=== PATIENT | male | born 1985 | race Hispanic/Latino ===

== ENCOUNTER 2022-10-25 17:56 | Inpatient (IN) | payer OTHER, MEDICAID ==
[~2022-10-25] VITALS: Ht 172.7 cm; Wt 111.1 kg
[2022-10-25 19:35] LABS: BASOPHILS % (AUTO) 0.8 % (0.0-5.0); EOSINOPHILS % (AUTO) 1.5 % (0.0-8.0); HEMATOCRIT 39.5 % (42-54); LYMPHOCYTES % (AUTO) 24.2 % (21.0-51.0); MEAN CORPUSCULAR HEMOGLOBIN 26.9 pg (27.0-33.0); MEAN CORPUSCULAR HGB CONC 32.4 g/dL (32.0-36.0); MEAN CORPUSCULAR VOLUME 83.2 fL (79-99); MONOCYTES % (AUTO) 7.2 % (3.0-13.0); NEUTROPHILS % (AUTO) 65.7 % (40.0-77.0); PLATELET COUNT (AUTO) 302 K/uL (130-400); RED BLOOD CELL COUNT(AUTO) 4.75 MIL/uL (4.50-6.20); RED CELL DISTRIBUTION WIDTH 14.6 % (11.0-15.5); WHITE BLOOD COUNT (AUTO) 12.5 K/uL (4.8-10.8)
[2022-10-25 19:38] LABS: APPEARANCE,URINE CLEAR (CLEAR); BILIRUBIN,URINE NEGATIVE (NEGATIVE); COLOR,URINE COLORLESS (YELLOW); GLUCOSE, URINE (UA) NEGATIVE (NEGATIVE); KETONES,URINE NEGATIVE (NEGATIVE); LEUKOCYTE ESTERASE ,URINE NEGATIVE Leu/uL (NEGATIVE); NITRATE,URINE NEGATIVE (NEGATIVE); OCCULT BLOOD,URINE NEGATIVE (NEGATIVE); PROTEIN,URINE NEGATIVE (NEGATIVE); UROBILINOGEN,URINE 0.2 mg/dL (0.2-1.0)
[2022-10-25 19:40] LABS: MUCUS,URINE RARE LPF (None Seen); RBC,URINE 0-1 /HPF (0-1); WBC,URINE 0-1 /HPF (0-1)
[2022-10-25 19:59] LABS: POTASSIUM 4.2 mmol/L (3.5-5.1)
[2022-10-25 20:04] LABS: ALBUMIN 3.9 g/dL (3.5-5.0)
[2022-10-25] MEDS ORDERED: PANTOPRAZOLE 40 MG/VIAL IVP ONE (21:30)
[2022-10-25] MEDS ORDERED: FENTANYL CITRATE PF 50 MCG/1 ML 2ML VIAL IVP ONE (21:30)
[2022-10-25] MEDS ORDERED: LACTULOSE 20 GM/30 ML UDCUP PO PRN (22:30)
[2022-10-25] MEDS: LACTATED RINGERS 1000ML 1,000 ML IV SCH (22:30)
[2022-10-25] MEDS ORDERED: ONDANSETRON 4MG INJ IV PRN (22:30)
[2022-10-25] MEDS ORDERED: ACETAMINOPHEN 325 MG TAB PO PRN ×2 (22:30)
[2022-10-25] MEDS ORDERED: IOHEXOL 350 MG/ML 100ML INFUS..BTL IV ONE (22:33)
[2022-10-26 03:15] VITALS: BP 118/78
[2022-10-26] MEDS: MORPHINE 4 MG SYG IV PRN ×2 (04:23→11:51)
[2022-10-26] MEDS ORDERED: TIZA-194 PO (05:26)
[2022-10-26] MEDS ORDERED: ALPR2TAB7 PO (05:26)
[2022-10-26] MEDS ORDERED: AEC81 PO (05:26)
[2022-10-26] MEDS ORDERED: FLUO10CA24 PO (05:26)
[2022-10-26] MEDS ORDERED: TRAM50TA4 PO (05:26)
[2022-10-26] MEDS ORDERED: CHOL200012 PO (05:26)
[2022-10-26] MEDS ORDERED: GABA300S PO (05:26)
[2022-10-26] MEDS ORDERED: EZET10TA48 PO (05:26)
[2022-10-26] MEDS ORDERED: TRAZ-185 PO (05:26)
[2022-10-26] MEDS ORDERED: MULT-503 PO (05:26)
[2022-10-26] MEDS ORDERED: FERR325T29 PO (05:26)
[2022-10-26] MEDS ORDERED: DICL75TA5 PO (05:26)
[2022-10-26] MEDS ORDERED: LISI1TAB53 PO (05:26)
[2022-10-26] MEDS ORDERED: CILO50TA2 PO (05:26)
[2022-10-26] MEDS ORDERED: LEVE10006 PO (05:26)
[2022-10-26] MEDS ORDERED: FISH1CAP63 PO (05:26)
[2022-10-26] MEDS ORDERED: PANT40TA54 PO (05:26)
[2022-10-26] MEDS ORDERED: ATOR40TA69 PO (05:26)
[2022-10-26 05:38] LABS: BASOPHILS % (AUTO) 0.7 % (0.0-5.0); EOSINOPHILS % (AUTO) 1.6 % (0.0-8.0); HEMATOCRIT 35.2 % (42-54); LYMPHOCYTES % (AUTO) 32.3 % (21.0-51.0); MEAN CORPUSCULAR HEMOGLOBIN 26.7 pg (27.0-33.0); MEAN CORPUSCULAR HGB CONC 32.7 g/dL (32.0-36.0); MEAN CORPUSCULAR VOLUME 81.9 fL (79-99); NEUTROPHILS % (AUTO) 57.1 % (40.0-77.0); PLATELET COUNT (AUTO) 249 K/uL (130-400); RED CELL DISTRIBUTION WIDTH 14.8 % (11.0-15.5); WHITE BLOOD COUNT (AUTO) 9.2 K/uL (4.8-10.8)
[2022-10-26 05:53] LABS: CREATININE 1.2 mg/dL (0.5-1.5); POTASSIUM 3.9 mmol/L (3.5-5.1)
[2022-10-26 08:00] VITALS: BP 118/64
[2022-10-26] MEDS: LACTATED RINGERS 1000ML 1,000 ML IV SCH (08:30)
[2022-10-26] MEDS ORDERED: PANTOPRAZOLE 40 MG/VIAL IVP SCH (09:00)
[2022-10-26 12:00] VITALS: BP 110/74
[2022-10-26] MEDS ORDERED: COMPOUND IV MISC 1 EACH IVSOLN MISC PRN (13:00)
[2022-10-26 13:23] LABS: % IRON SATURATION 15.3 % (30-44)
[2022-10-26] MEDS ORDERED: LEVETIRACETAM 1,000 MG in 0.9%NACL 100ML IV SCH (21:00)
== END 2022-10-26 15:15 | disposition left against medical advice (07) | DRG 378 ==
LOC: EDH 17:56 → EDHIP 17:57 → UNDOADMIN 22:04 → EDHIP 22:04 → 3AH 10-26 03:38
PROVIDERS: ADMIT Hospitalist; ATTEND Hospitalist
DX: K92.2 Gastrointestinal hemorrhage, unspecified (principal); E87.1 Hypo-osmolality and hyponatremia; K76.0 Fatty (change of) liver, not elsewhere classified; E66.9 Obesity, unspecified; F32.A Depression, unspecified; I10 Essential (primary) hypertension; F41.9 Anxiety disorder, unspecified; E78.00 Pure hypercholesterolemia, unspecified; D64.9 Anemia, unspecified; F17.200 Nicotine dependence, unspecified, uncomplicated; I25.10 Atherosclerotic heart disease of native coronary artery without angina pectoris; R10.30 Lower abdominal pain, unspecified; M51.26 Other intervertebral disc displacement, lumbar region; Z87.11 Personal history of peptic ulcer disease; Z68.37 Body mass index [BMI] 37.0-37.9, adult
CPT/HCPCS: 36415; 74177; 80048; 80053; 81001; 82270; 83540; 83550; 85025; 85730; 86850; 86900; 86901; 96361; 96374; 96375; C9113; G0378; J1953; J2270; J3010; J7120; Q9967

== ENCOUNTER 2022-12-07 11:52 | Emergency (ER) | payer OTHER, MEDICAID ==
[~2022-12-07] VITALS: Ht 172.7 cm; Wt 110.2 kg
[~2022-12-07 11:52] MED LIST: AEC81 PO; ALPR2TAB7 PO; ATOR40TA69 PO; CHOL200012 PO; CILO50TA2 PO; DICL75TA5 PO; EZET10TA48 PO; FERR325T29 PO; FISH1CAP63 PO; FLUO10CA24 PO; GABA300S PO; LEVE10006 PO; LISI1TAB53 PO; MULT-503 PO; PANT40TA54 PO; TIZA-194 PO; TRAM50TA4 PO; TRAZ-185 PO
[2022-12-07 13:39] LABS: APPEARANCE,URINE CLEAR (CLEAR); BILIRUBIN,URINE NEGATIVE (NEGATIVE); COLOR,URINE LIGHT-YELLOW (YELLOW); GLUCOSE, URINE (UA) NEGATIVE (NEGATIVE); KETONES,URINE NEGATIVE (NEGATIVE); LEUKOCYTE ESTERASE ,URINE NEGATIVE Leu/uL (NEGATIVE); NITRATE,URINE NEGATIVE (NEGATIVE); OCCULT BLOOD,URINE NEGATIVE (NEGATIVE); PH,URINE 5.5 (5.0-8.0); PROTEIN,URINE NEGATIVE (NEGATIVE); UROBILINOGEN,URINE 0.2 mg/dL (0.2-1.0)
[2022-12-07 14:06] LABS: BASOPHILS % (AUTO) 0.7 % (0.0-5.0); EOSINOPHILS % (AUTO) 2.4 % (0.0-8.0); HEMATOCRIT 34.7 % (42-54); LYMPHOCYTES % (AUTO) 34.6 % (21.0-51.0); MEAN CORPUSCULAR HEMOGLOBIN 26.8 pg (27.0-33.0); MEAN CORPUSCULAR VOLUME 83.8 fL (79-99); MONOCYTES % (AUTO) 7.3 % (3.0-13.0); NEUTROPHILS % (AUTO) 54.4 % (40.0-77.0); PLATELET COUNT (AUTO) 256 K/uL (130-400); RED BLOOD CELL COUNT(AUTO) 4.14 MIL/uL (4.50-6.20); RED CELL DISTRIBUTION WIDTH 14.6 % (11.0-15.5); WHITE BLOOD COUNT (AUTO) 7.2 K/uL (4.8-10.8)
[2022-12-07 14:16] LABS: POTASSIUM 4.1 mmol/L (3.5-5.1)
[2022-12-07 14:20] LABS: ALBUMIN 3.6 g/dL (3.5-5.0); TOTAL PROTEIN, SERUM 6.7 g/dL (6.0-8.3)
[2022-12-07] MEDS ORDERED: ONDANSETRON 4MG INJ IVP ONE (14:30)
[2022-12-07] MEDS ORDERED: 0.9%NACL 1000ML 1,000 ML IV ONE (14:30)
[2022-12-07] MEDS ORDERED: FAMOTIDINE 20MG VIAL IV ONE (14:30)
[2022-12-07] MEDS ORDERED: MORPHINE 4 MG SYG IVP ONE (14:30)
[2022-12-07 14:37] VITALS: BP 132/69
[2022-12-07] MEDS ORDERED: IOHEXOL 350 MG/ML 100ML INFUS..BTL IV ONE (15:08)
== END 2022-12-07 16:14 | disposition home or self-care (01) ==
LOC: EDH 11:52
DX: G89.29 Other chronic pain (principal); M54.50 Low back pain, unspecified; K62.5 Hemorrhage of anus and rectum; I10 Essential (primary) hypertension; E78.5 Hyperlipidemia, unspecified; E78.00 Pure hypercholesterolemia, unspecified; Z79.899 Other long term (current) drug therapy
CPT/HCPCS: 99285; 72131; 96374; 96375; 96361; 82270; 80053; 85025; 86850; 86900; 86901; 81003; 36415; 74177; J3490; J7030; J2405; J2270; Q9967

== ENCOUNTER 2022-12-26 13:11 | Emergency (ER) | payer OTHER, MEDICAID ==
[~2022-12-26] VITALS: Ht 172.7 cm; Wt 113.4 kg
[2022-12-26 13:12] VITALS: BP 127/79
[2022-12-26] MEDS ORDERED: KETOROLAC 15MG/ML VIAL (15MG/ML) IM ONE (14:00)
== END 2022-12-26 16:03 | disposition home or self-care (01) ==
LOC: EDH 13:11
DX: G89.29 Other chronic pain (principal); M54.50 Low back pain, unspecified; E78.00 Pure hypercholesterolemia, unspecified; I10 Essential (primary) hypertension; Z79.899 Other long term (current) drug therapy
CPT/HCPCS: 99281

== ENCOUNTER 2023-02-10 04:38 | Emergency (ER) | payer MEDICAID, OTHER ==
[~2023-02-10] VITALS: Ht 172.7 cm; Wt 108.9 kg
[~2023-02-10 04:38] MED LIST changes: -GABA300S PO; +GABA300S3 PO
[2023-02-10 05:23] LABS: BASOPHILS % (AUTO) 0.5 % (0.0-5.0); EOSINOPHILS % (AUTO) 0.7 % (0.0-8.0); HEMATOCRIT 36.4 % (42-54); LYMPHOCYTES % (AUTO) 9.9 % (21.0-51.0); MEAN CORPUSCULAR HEMOGLOBIN 28.7 pg (27.0-33.0); MEAN CORPUSCULAR HGB CONC 33.8 g/dL (32.0-36.0); MONOCYTES % (AUTO) 5.3 % (3.0-13.0); NEUTROPHILS % (AUTO) 83.2 % (40.0-77.0); PLATELET COUNT (AUTO) 414 K/uL (130-400); RED BLOOD CELL COUNT(AUTO) 4.28 MIL/uL (4.50-6.20); RED CELL DISTRIBUTION WIDTH 13.2 % (11.0-15.5); WHITE BLOOD COUNT (AUTO) 13.7 K/uL (4.8-10.8)
[2023-02-10] MEDS ORDERED: KETOROLAC 30MG VIAL (30MG/ML) ONE (05:30)
[2023-02-10 05:34] LABS: POTASSIUM 3.8 mmol/L (3.5-5.1)
[2023-02-10 05:38] LABS: ALBUMIN 3.6 g/dL (3.5-5.0); TOTAL PROTEIN, SERUM 7.7 g/dL (6.0-8.3)
[2023-02-10] MEDS ORDERED: 0.9%NACL 1000ML 1,000 ML IV ONE (06:00)
[2023-02-10] MEDS ORDERED: KETOROLAC 30MG VIAL (30MG/ML) IVP ONE (06:00)
[2023-02-10] MEDS ORDERED: CEFEPIME HCL 2 GM VIAL IVPB SCH (06:30)
[2023-02-10] MEDS ORDERED: ONDANSETRON 4MG INJ IVP ONE (06:30)
[2023-02-10] MEDS ORDERED: VANCOMYCIN 1G VIAL IVPB ONE (06:30)
[2023-02-10] MEDS ORDERED: DiphenhydrAMINE HCL 50 MG/ML VIAL IV ONE (06:30)
[2023-02-10] MEDS ORDERED: MORPHINE 4 MG SYG IVP ONE (06:30)
[2023-02-10] MEDS ORDERED: PROCHLORPERAZINE 10MG/2ML INJ IV ONE (06:30)
[2023-02-10] MEDS ORDERED: VANCOMYCIN 1G/250ML KIT 250 ML IV ONE (06:39)
[2023-02-10 07:19] LABS: APPEARANCE,URINE CLEAR (CLEAR); BILIRUBIN,URINE NEGATIVE (NEGATIVE); COLOR,URINE COLORLESS (YELLOW); GLUCOSE, URINE (UA) NEGATIVE (NEGATIVE); KETONES,URINE NEGATIVE (NEGATIVE); LEUKOCYTE ESTERASE ,URINE NEGATIVE Leu/uL (NEGATIVE); NITRATE,URINE NEGATIVE (NEGATIVE); OCCULT BLOOD,URINE NEGATIVE (NEGATIVE); PH,URINE 6.5 (5.0-8.0); PROTEIN,URINE NEGATIVE (NEGATIVE); UROBILINOGEN,URINE 0.2 mg/dL (0.2-1.0)
[2023-02-10 08:53] VITALS: BP 116/70
== END 2023-02-10 09:48 | disposition short-term general hospital (02) ==
LOC: EDH 04:38
DX: R50.82 Postprocedural fever (principal); E78.00 Pure hypercholesterolemia, unspecified; I10 Essential (primary) hypertension; Z79.82 Long term (current) use of aspirin; Z79.899 Other long term (current) drug therapy; Z86.73 Personal history of transient ischemic attack (TIA), and cerebral infarction without residual deficits; Z20.822 Contact with and (suspected) exposure to COVID-19
CPT/HCPCS: 99284; 96375; 96374; 87635; 96361; 80053; 85025; 87040 ×2; 83605 ×2; 81003; 36415; C9803; J1200; J7030; J0780; J2405; J2270; J1885; J3370; J0692

== ENCOUNTER 2023-05-02 15:48 | Emergency (ER) | payer MEDICAID ==
[~2023-05-02] VITALS: Ht 172.7 cm; Wt 113.4 kg
[2023-05-02 17:09] LABS: APPEARANCE,URINE CLEAR (CLEAR); BILIRUBIN,URINE NEGATIVE (NEGATIVE); COLOR,URINE LIGHT-YELLOW (YELLOW); GLUCOSE, URINE (UA) >=1000 mg/dL (NEGATIVE); KETONES,URINE NEGATIVE (NEGATIVE); LEUKOCYTE ESTERASE ,URINE NEGATIVE Leu/uL (NEGATIVE); NITRATE,URINE NEGATIVE (NEGATIVE); OCCULT BLOOD,URINE NEGATIVE (NEGATIVE); PH,URINE 5.5 (5.0-8.0); PROTEIN,URINE NEGATIVE (NEGATIVE); UROBILINOGEN,URINE 0.2 mg/dL (0.2-1.0)
[2023-05-02 17:30] LABS: RBC,URINE 0-1 /HPF (0-1); SQUAMOUS EPITHELIAL CELL,UR RARE /HPF (0-2); WBC,URINE 0-1 /HPF (0-1)
[2023-05-02 17:32] LABS: BASOPHILS % (AUTO) 0.9 % (0.0-5.0); EOSINOPHILS % (AUTO) 4.7 % (0.0-8.0); HEMATOCRIT 41.3 % (42-54); MEAN CORPUSCULAR HEMOGLOBIN 28.6 pg (27.0-33.0); MEAN CORPUSCULAR HGB CONC 35.6 g/dL (32.0-36.0); MEAN CORPUSCULAR VOLUME 80.4 fL (79-99); MONOCYTES % (AUTO) 5.7 % (3.0-13.0); NEUTROPHILS % (AUTO) 57.3 % (40.0-77.0); PLATELET COUNT (AUTO) 247 K/uL (130-400); RED BLOOD CELL COUNT(AUTO) 5.14 MIL/uL (4.50-6.20); WHITE BLOOD COUNT (AUTO) 7.9 K/uL (4.8-10.8)
[2023-05-02 17:50] LABS: ALBUMIN 3.6 g/dL (3.5-5.0); CREATININE 1.3 mg/dL (0.5-1.5); POTASSIUM 4.3 mmol/L (3.5-5.1); TOTAL PROTEIN, SERUM 7.8 g/dL (6.0-8.3)
[2023-05-02] MEDS ORDERED: ONDANSETRON 4MG INJ IVP ONE (18:00)
[2023-05-02] MEDS ORDERED: 0.9%NACL 1000ML 1,000 ML IV ONE (18:00)
[2023-05-02 18:48] VITALS: BP 143/90; PULSE 89; RESP 20; O2SAT 95
[2023-05-02] MEDS ORDERED: METF-444 PO (22:21)
== END 2023-05-02 22:44 | disposition home or self-care (01) ==
LOC: EDH 15:48
DX: E11.65 Type 2 diabetes mellitus with hyperglycemia (principal); E78.00 Pure hypercholesterolemia, unspecified; I10 Essential (primary) hypertension; Z79.02 Long term (current) use of antithrombotics/antiplatelets; Z79.82 Long term (current) use of aspirin; Z79.84 Long term (current) use of oral hypoglycemic drugs; Z79.899 Other long term (current) drug therapy; Z86.73 Personal history of transient ischemic attack (TIA), and cerebral infarction without residual deficits
CPT/HCPCS: 99285; 96374; 70450; 96361; 84484; 80053; 85025; 82948 ×3; 82010; 81001; 36415; 93005; J7030; J2405

== ENCOUNTER 2023-09-09 09:53 | Emergency (ER) | payer OTHER, MEDICAID ==
[~2023-09-09] VITALS: Ht 172.7 cm; Wt 113.4 kg
[~2023-09-09 09:53] MED LIST changes: +CHOL2000 PO; +CYCL-309 PO; +ESOM20CA60 PO; +GABA600T10 PO; +INSU100V37 SQ; +IPRAHFA IH; +METF-444 PO; +METO50TA18 PO; +ROSU40TA21 PO; +SITA1TAB2 PO
[2023-09-09 10:29] LABS: BASOPHILS # (AUTO) 0.06 K/uL (0.00-0.20); BASOPHILS % (AUTO) 0.9 % (0.0-5.0); EOSINOPHILS # (AUTO) 0.16 K/uL (0.00-0.70); EOSINOPHILS % (AUTO) 2.3 % (0.0-8.0); HEMATOCRIT 42.5 % (42-54); IMMATURE GRANULOCYTE ABSOLUTE 0.04 K/uL (0-1); LYMPHOCYTES # (AUTO) 2.2 K/uL (1.0-4.8); LYMPHOCYTES % (AUTO) 31.5 % (21.0-51.0); MEAN CORPUSCULAR HEMOGLOBIN 30.2 pg (27.0-33.0); MEAN CORPUSCULAR HGB CONC 33.6 g/dL (32.0-36.0); MEAN CORPUSCULAR VOLUME 89.9 fL (79-99); MONOCYTES # (AUTO) 0.6 K/uL (0.1-1.0); MONOCYTES % (AUTO) 8.3 % (3.0-13.0); NEUTROPHILS % (AUTO) 56.4 % (40.0-77.0); PLATELET COUNT (AUTO) 202 K/uL (130-400); RED BLOOD CELL COUNT(AUTO) 4.73 MIL/uL (4.50-6.20); RED CELL DISTRIBUTION WIDTH 12.2 % (11.0-15.5)
[2023-09-09 10:38] LABS: CREATININE 0.8 mg/dL (0.5-1.5); POTASSIUM 3.8 mmol/L (3.5-5.1)
[2023-09-09 10:41] LABS: ALBUMIN 3.2 g/dL (3.5-5.0); BILIRUBIN,TOTAL 0.4 mg/dL (0.2-1.0); TOTAL PROTEIN, SERUM 6.7 g/dL (6.0-8.3)
[2023-09-09 12:30] LABS: APPEARANCE,URINE CLEAR (CLEAR); BILIRUBIN,URINE NEGATIVE (NEGATIVE); COLOR,URINE LIGHT-YELLOW (YELLOW); GLUCOSE, URINE (UA) NEGATIVE (NEGATIVE); KETONES,URINE NEGATIVE (NEGATIVE); LEUKOCYTE ESTERASE ,URINE NEGATIVE Leu/uL (NEGATIVE); NITRATE,URINE NEGATIVE (NEGATIVE); OCCULT BLOOD,URINE NEGATIVE (NEGATIVE); PROTEIN,URINE NEGATIVE (NEGATIVE); UROBILINOGEN,URINE 0.2 mg/dL (0.2-1.0)
[2023-09-09] MEDS ORDERED: MORPHINE 4 MG SYG IVP ONE (12:30)
[2023-09-09] MEDS ORDERED: ONDANSETRON 4MG INJ IVP ONE (12:30)
[2023-09-09 12:32] LABS: ADD UA MICROSCOPIC YES
[2023-09-09 12:33] LABS: MUCUS,URINE RARE LPF (None Seen); RBC,URINE 0-1 /HPF (0-1); WBC,URINE 0-1 /HPF (0-1)
[2023-09-09 14:29] VITALS: BP 147/84; PULSE 72; RESP 18; O2SAT 98
[2023-09-09] MEDS ORDERED: IOHEXOL 350 MG/ML 100ML INFUS..BTL IV ONE (14:38)
[2023-09-09] MEDS ORDERED: FAMO20TA8 PO (15:13)
[2023-09-09] MEDS ORDERED: ACETAMINOPHEN 500 MG TABLET PO ONE (15:30)
== END 2023-09-09 15:32 | disposition home or self-care (01) ==
LOC: EDH 09:53
DX: K76.0 Fatty (change of) liver, not elsewhere classified (principal); K63.5 Polyp of colon; F41.9 Anxiety disorder, unspecified; E11.9 Type 2 diabetes mellitus without complications; E78.00 Pure hypercholesterolemia, unspecified; F32.A Depression, unspecified; I10 Essential (primary) hypertension; Z79.02 Long term (current) use of antithrombotics/antiplatelets; Z79.82 Long term (current) use of aspirin; Z79.84 Long term (current) use of oral hypoglycemic drugs; Z79.899 Other long term (current) drug therapy; Z86.73 Personal history of transient ischemic attack (TIA), and cerebral infarction without residual deficits
CPT/HCPCS: 99285; 74177; 96374; 96375; 82270; 84484; 80053; 83690; 85025; 81001; 36415; 93005; J2405; J2270; Q9967

== ENCOUNTER 2024-06-21 00:38 | Emergency (ER) | payer MEDICAID ==
[~2024-06-21] VITALS: Ht 172.7 cm; Wt 108.9 kg
[~2024-06-21 00:38] MED LIST changes: -ATOR40TA69 PO; -CHOL200012 PO; -DICL75TA5 PO; -FLUO10CA24 PO; +GABA-1405 PO; -GABA300S3 PO; -GABA600T10 PO; +INSU100I47 SQ; -INSU100V37 SQ; +INSU200I8 SQ; -LEVE10006 PO; +LIDO1ADH71 TP; -LISI1TAB53 PO; +LOSA50TA64 PO; -METF-444 PO; +METF-446 PO; +METO50 PO; -METO50TA18 PO; -PANT40TA54 PO; -ROSU40TA21 PO; +ROSU40TA88 PO; +SITA100T12 PO; -SITA1TAB2 PO; -TIZA-194 PO; -TRAM50TA4 PO; -TRAZ-185 PO
[2024-06-21 02:05] LABS: BASOPHILS # (AUTO) 0.06 K/uL (0.00-0.20); BASOPHILS % (AUTO) 0.6 % (0.0-5.0); EOSINOPHILS # (AUTO) 0.08 K/uL (0.00-0.70); EOSINOPHILS % (AUTO) 0.8 % (0.0-8.0); HEMATOCRIT 40.5 % (42-54); IMMATURE GRANULOCYTE ABSOLUTE 0.03 K/uL (0-1); LYMPHOCYTES # (AUTO) 3.9 K/uL (1.0-4.8); MEAN CORPUSCULAR HEMOGLOBIN 29.7 pg (27.0-33.0); MEAN CORPUSCULAR HGB CONC 35.3 g/dL (32.0-36.0); MEAN CORPUSCULAR VOLUME 84.2 fL (79-99); MONOCYTES # (AUTO) 0.8 K/uL (0.1-1.0); MONOCYTES % (AUTO) 7.6 % (3.0-13.0); NEUTROPHILS # (AUTO) 5.4 K/uL (1.8-7.7); NEUTROPHILS % (AUTO) 52.7 % (40.0-77.0); PLATELET COUNT (AUTO) 234 K/uL (130-400); RED BLOOD CELL COUNT(AUTO) 4.81 MIL/uL (4.50-6.20); RED CELL DISTRIBUTION WIDTH 12.7 % (11.0-15.5); WHITE BLOOD COUNT (AUTO) 10.2 K/uL (4.8-10.8)
[2024-06-21 02:14] LABS: CREATININE 0.9 mg/dL (0.5-1.3); POTASSIUM 4.1 mmol/L (3.5-5.1)
[2024-06-21 02:18] LABS: ALBUMIN 3.8 g/dL (3.5-5.0); BILIRUBIN,TOTAL 0.6 mg/dL (0.2-1.0); TOTAL PROTEIN, SERUM 7.6 g/dL (6.0-8.3)
[2024-06-21] MEDS: ondanSETRON 4MG INJ IVP ONE (02:29)
[2024-06-21] MEDS: morPHINE 4 MG SYG IVP ONE (02:29)
[2024-06-21] MEDS: LACTATED RINGERS 1000ML 1,000 ML IV ONE (02:30)
[2024-06-21 02:40] VITALS: TEMP 98.9
[2024-06-21] MEDS ORDERED: IOHEXOL 350 MG/ML 100ML INFUS..BTL IV ONE (04:40)
[2024-06-21 06:06] LABS: ADD UA MICROSCOPIC YES; APPEARANCE,URINE CLEAR (CLEAR); BILIRUBIN,URINE NEGATIVE (NEGATIVE); COLOR,URINE LIGHT-YELLOW (YELLOW); GLUCOSE, URINE (UA) NEGATIVE (NEGATIVE); KETONES,URINE NEGATIVE (NEGATIVE); LEUKOCYTE ESTERASE ,URINE NEGATIVE Leu/uL (NEGATIVE); NITRATE,URINE NEGATIVE (NEGATIVE); OCCULT BLOOD,URINE NEGATIVE (NEGATIVE); PH,URINE 6.5 (5.0-8.0); PROTEIN,URINE 10 mg/dL (NEGATIVE); UROBILINOGEN,URINE 0.2 mg/dL (0.2-1.0)
[2024-06-21 06:08] LABS: MUCUS,URINE RARE LPF (None Seen); RBC,URINE 0-1 /HPF (0-1); SQUAMOUS EPITHELIAL CELL,UR RARE /HPF (0-2); WBC,URINE 0-1 /HPF (0-1)
[2024-06-21 06:10] LABS: AMPHET/METH SCREEN,URINE NEGATIVE (NEGATIVE); BARBITURATE SCREEN, URINE NEGATIVE (NEGATIVE); BENZODIAZEPINES SCREEN,URINE POSITIVE (NEGATIVE); CANNABINOID SCREEN,URINE NEGATIVE (NEGATIVE); COCAINE SCREEN,URINE POSITIVE (NEGATIVE); OPIATE SCREEN,URINE POSITIVE (NEGATIVE); PHENCYCLIDINE SCREEN,URINE NEGATIVE (NEGATIVE)
[2024-06-21 06:19] VITALS: BP 104/52; PULSE 68; RESP 18; O2SAT 99
== END 2024-06-21 06:51 | disposition home or self-care (01) ==
LOC: EDH 00:38
DX: R10.11 Right upper quadrant pain (principal); R53.1 Weakness; R53.83 Other fatigue; I10 Essential (primary) hypertension; E78.00 Pure hypercholesterolemia, unspecified; E11.51 Type 2 diabetes mellitus with diabetic peripheral angiopathy without gangrene; F32.A Depression, unspecified; F41.9 Anxiety disorder, unspecified; Z86.73 Personal history of transient ischemic attack (TIA), and cerebral infarction without residual deficits; Z79.85 Long-term (current) use of injectable non-insulin antidiabetic drugs; Z79.82 Long term (current) use of aspirin; Z79.899 Other long term (current) drug therapy; Z79.84 Long term (current) use of oral hypoglycemic drugs
CPT/HCPCS: 99285; 74177; 96374; 96361; 96375; 82150; 80053; 80305; 83690; 85025; 36415; 81001; J7120; J2405; J2270; Q9967

== ENCOUNTER 2024-10-07 00:55 | Emergency (ER) | payer MEDICAID ==
[~2024-10-07] VITALS: Ht 172.7 cm; Wt 104.3 kg
[2024-10-07 02:41] LABS: BASOPHILS # (AUTO) 0.07 K/uL (0.00-0.20); BASOPHILS % (AUTO) 0.6 % (0.0-5.0); EOSINOPHILS # (AUTO) 0.13 K/uL (0.00-0.70); EOSINOPHILS % (AUTO) 1.1 % (0.0-8.0); HEMATOCRIT 40.3 % (42-54); IMMATURE GRANULOCYTE ABSOLUTE 0.03 K/uL (0-1); LYMPHOCYTES # (AUTO) 3.8 K/uL (1.0-4.8); LYMPHOCYTES % (AUTO) 31.9 % (21.0-51.0); MEAN CORPUSCULAR HEMOGLOBIN 30.3 pg (27.0-33.0); MEAN CORPUSCULAR VOLUME 86.7 fL (79-99); MONOCYTES # (AUTO) 0.8 K/uL (0.1-1.0); MONOCYTES % (AUTO) 6.8 % (3.0-13.0); NEUTROPHILS % (AUTO) 59.3 % (40.0-77.0); PLATELET COUNT (AUTO) 286 K/uL (130-400); RED BLOOD CELL COUNT(AUTO) 4.65 MIL/uL (4.50-6.20); RED CELL DISTRIBUTION WIDTH 12.5 % (11.0-15.5); WHITE BLOOD COUNT (AUTO) 11.8 K/uL (4.8-10.8)
[2024-10-07 02:48] LABS: CREATININE 0.8 mg/dL (0.5-1.3); POTASSIUM 3.8 mmol/L (3.5-5.1)
[2024-10-07 03:05] LABS: B-TYPE NATRIURETIC PEPTIDE 10 pg/mL (0-100)
--- NOTE | 2024-10-07 03:20 | NUR ---
UA CUP PROVIDED
--- NOTE | 2024-10-07 03:25 | NUR ---
REPORT TO HAZEL GAMEZ
[2024-10-07] MEDS: LACTATED RINGERS 1000ML 1,368 ML IV ONE (04:29)
[2024-10-07 04:36] LABS: APPEARANCE,URINE CLEAR (CLEAR); BILIRUBIN,URINE NEGATIVE (NEGATIVE); COLOR,URINE YELLOW (YELLOW); GLUCOSE, URINE (UA) NEGATIVE (NEGATIVE); KETONES,URINE NEGATIVE (NEGATIVE); LEUKOCYTE ESTERASE ,URINE NEGATIVE Leu/uL (NEGATIVE); NITRATE,URINE NEGATIVE (NEGATIVE); OCCULT BLOOD,URINE NEGATIVE (NEGATIVE); PH,URINE 5.5 (5.0-8.0); PROTEIN,URINE NEGATIVE (NEGATIVE); UROBILINOGEN,URINE 0.2 mg/dL (0.2-1.0)
[2024-10-07 04:43] LABS: ADD UA MICROSCOPIC NO; AMPHET/METH SCREEN,URINE NEGATIVE (NEGATIVE); BARBITURATE SCREEN, URINE NEGATIVE (NEGATIVE); BENZODIAZEPINES SCREEN,URINE NEGATIVE (NEGATIVE); CANNABINOID SCREEN,URINE NEGATIVE (NEGATIVE); COCAINE SCREEN,URINE NEGATIVE (NEGATIVE); OPIATE SCREEN,URINE NEGATIVE (NEGATIVE); PHENCYCLIDINE SCREEN,URINE NEGATIVE (NEGATIVE)
[2024-10-07] MEDS: morPHINE 4 MG SYG IVP ONE (05:17)
--- NOTE | 2024-10-07 06:30 | ERN ---
General Chief Complaint: Multiple Complaints Stated Complaint: LOW BLOOD SUGAR, CHEST PAIN Time Seen by MD: 03:31 History of Present Illness Initial Comments Mr Altamirano is a 39-year-old male who comes in today with a chief complaint of low blood sugar and muscle pain. Patient reports he has been taking Ozempic for weight loss. Patient reports he has had no appetite has had very little to eat. Patient states that his sugar has been in the 40s and 50s. Patient reports he recently cut his insulin half to accommodate for the Ozempic affect. Patient reports widespread muscle aches and pain Allergies: Coded Allergies: No Known Allergies (Unverified Allergy, Unknown, 10/25/22) Home Meds Reported Medications Lidocaine (Lidocaine Pain Relief) 4 % Adh..patch, 1 EACH TP DAILY PRN for BACK PAIN, ADH.PATCH 12/24/23 Insulin Degludec (Insulin Degludec Pen (U-200)) 200 Unit/Ml (3 Ml) Insuln.pen, 50 UNIT SQ HS, SYRINGE 12/24/23 Insulin Aspart (Insulin Aspart Flexpen) 100 Unit/Ml (3 Ml) Insuln.pen, 50 UNITS SQ NOON PRN for HIGH BLOOD SUGAR 12/24/23 Losartan Potassium (Losartan Potassium) 50 Mg Tablet, 50 MG PO AM, TAB 12/24/23 Sitagliptin Phosphate (Januvia) 100 Mg Tablet, 1 TAB PO DAILY 12/24/23 Metoprolol Tartrate (Lopressor 50Mg Tab) 50 Mg Tab, 1 TAB PO BID 12/24/23 Metformin HCl (Metformin HCl) 1,000 Mg Tablet, 1 TAB PO BID 12/24/23 Cholecalciferol (Vitamin D3) (Vitamin D3) 50 Mcg Capsule, 50 MCG PO AM, CAP 05/22/23 Rosuvastatin Calcium (Rosuvastatin Calcium) 40 Mg Tablet, 40 MG PO HS, TAB 05/22/23 Cyclobenzaprine HCl (Cyclobenzaprine HCl) 10 Mg Tablet, 10 MG PO TIDP PRN for PAIN LEVEL 1 TO 5, TAB 05/22/23 Gabapentin (Gabapentin) 600 Mg Tablet, 600 MG PO TID, TAB 05/22/23 Esomeprazole Magnesium (Nexium 24Hr) 20 Mg Capsule.dr, 20 MG PO DAILY, CAP 05/22/23 Ipratropium Crary (Atrovent Hfa) 12.9 Gm Hfa.aer.ad, 17 MCG IH Q4HPRN 05/22/23 Ezetimibe (Ezetimibe) 10 Mg Tablet, 10 MG PO DAILY, TAB 10/26/22 Ferrous Sulfate (Ferosul) 325 Mg Tablet, 325 MG PO DAILY, TAB 10/26/22 Alprazolam (Alprazolam) 2 Mg Tablet, 2 MG PO BID, TAB 10/26/22 Cilostazol (Cilostazol) 50 Mg Tablet, 50 MG PO DAILY, TAB 10/26/22 Aspirin (ASPIRIN 81 MG ECTAB) 81 Mg Ectab, 81 MG PO BID, TAB.EC 10/26/22 Multivitamin with Minerals (One Daily Complete) 1 Each Tablet, 1 EACH PO DAILY, TAB 10/26/22 Fish Oil/Dha/Epa (Fish Oil 1,200 mg Fish Oil) 1 Each Capsule, 1 EACH PO BID, CAP 10/26/22 Past Medical History Past Medical History: Anxiety, CVA, Depression, Diabetes-Type II, High Cholesterol, Heart Disease, Hypertension, Liver Disease, [place], Seizure, Stroke, Other Medical History Other: PAD, DRUG INDUCED [place] Past Surgical History: Other Surgical History Other: RIGHT SHOULDER AND WRIST, BACK , TEETH , STENT TO RLEFT LEG Social History Social History: Negative ROS Dictation Constitutional: Negative for fever,chills, and weight loss Eyes: Negative for injury, pain,redness, and discharge ENT: Negative for injury,pain or swelling Cardiovascular: Negative for chest pain, palpitations, and edema Respiratory: Negative for shortness of breath, cough, and wheezing, Abdomen/GI: Negative for abdominal pain, nausea, vomiting, diarrhea, and constipation Back: Negative for injury and pain : Negative for injury, bleeding and discharge MS/Extremity: Positive for muscle aches Skin: Negative for rash, and discoloration Neuro: Negative for headache, weakness, numbness, tingling, and seizure Psych: Negative for suicide ideation, homicidal ideation, and hallucinations Physical Exam Physical Exam Dictation General: awake, alert, NAD Head/Face: Normocephalic, atraumatic Eyes: PERRL, EOMI, vision at baseline ENT: oral cavity clear, Neck: Trachea midline, supple, Cardiovascular: RRR, normal S1/S2, No MRGs, no JVD Respiratory: CTAB, no respiratory distress, No rales or wheezes Abdomen: Soft, non-tender, non-distended, normal bowel sounds Skin: Warm, dry, normal turgor, no rash MS/Extremity: Pulses equal, no cyanosis, neurovascular intact, FROM Neuro: COAx4, GCS 15 Psych: Normal behavior, mood, and affect normal Results Laboratory and Microbiology Lab and Micro Result Laboratory Tests Test 10/07/24 02:30 10/07/24 04:19 10/07/24 05:46 White Blood Count 11.8 K/uL (4.8-10.8) H Red Blood Count 4.65 MIL/uL (4.50-6.20) Hemoglobin 14.1 g/dL (14.0-18.0) Hematocrit 40.3 % (42-54) L Mean Corpuscular Volume 86.7 fL (79-99) Mean Corpuscular Hemoglobin 30.3 pg (27.0-33.0) Mean Corpuscular Hemoglobin Concent 35.0 g/dL (32.0-36.0) Red Cell Distribution Width 12.5 % (11.0-15.5) Platelet Count 286 K/uL (130-400) Mean Platelet Volume 8.4 fL (7.5-10.5) Immature Granulocyte % (Auto) 0.3 % (0-1) Neutrophils (%) (Auto) 59.3 % (40.0-77.0) Lymphocytes (%) (Auto) 31.9 % (21.0-51.0) Monocytes (%) (Auto) 6.8 % (3.0-13.0) Eosinophils (%) (Auto) 1.1 % (0.0-8.0) Basophils (%) (Auto) 0.6 % (0.0-5.0) Neutrophils # (Auto) 7.0 K/uL (1.8-7.7) Lymphocytes # (Auto) 3.8 K/uL (1.0-4.8) Monocytes # (Auto) 0.8 K/uL (0.1-1.0) Eosinophils # (Auto) 0.13 K/uL (0.00-0.70) Basophils # (Auto) 0.07 K/uL (0.00-0.20) Absolute Immature Granulocyte (auto 0.03 K/uL (0-1) Nucleated Red Blood Cells 0.0 % (0.0-0.19) Sodium Level 140 mmol/L (136-145) Potassium Level 3.8 mmol/L (3.5-5.1) Chloride Level 104 mmol/L (101-111) Carbon Dioxide Level 29 mmol/L (21-32) Blood Urea Nitrogen 10 mg/dL (7-18) Creatinine 0.8 mg/dL (0.5-1.3) Glomerular Filtration Rate Calc 115 mL/min (>90) Random Glucose 150 mg/dL (70-105) H Total Calcium 8.9 mg/dL (8.5-10.1) Total Creatine Kinase 628 U/L (21-232) *H 484 U/L (21-232) #*H Troponin I < 0.05 ng/mL (0.00-0.05) Troponin I High Sensitivity 4 ng/L (4-75) B-Type Natriuretic Peptide 10 pg/mL (0-100) Urine Color YELLOW (YELLOW) Urine Appearance CLEAR (CLEAR) Urine pH 5.5 (5.0-8.0) Urine Specific [place] 1.029 (1.001-1.031) Urine Protein NEGATIVE mg/dL (NEGATIVE) Urine Glucose (UA) NEGATIVE mg/dL (NEGATIVE) Urine Ketones NEGATIVE mg/dL (NEGATIVE) Urine Occult Blood NEGATIVE (NEGATIVE) Urine Nitrate NEGATIVE (NEGATIVE) Urine Bilirubin NEGATIVE mg/dL (NEGATIVE) Urine Urobilinogen 0.2 mg/dL (0.2-1.0) Urine Leukocyte Esterase NEGATIVE Kuldeep/uL Urine Opiates Screen NEGATIVE (NEGATIVE) Urine Barbiturates Screen NEGATIVE (NEGATIVE) Urine Phencyclidine Screen NEGATIVE (NEGATIVE) Urine Amphetamines Screen NEGATIVE (NEGATIVE) Urine Benzodiazepines Screen NEGATIVE (NEGATIVE) Urine Cocaine Screen NEGATIVE (NEGATIVE) Urine Marijuana (THC) Screen NEGATIVE (NEGATIVE) MDM Patient has a elevated CK in that has responded to fluid resuscitation. Patient appears to have side effects of Ozempic. Advised patient to stop Ozempic until he is seen by his primary care physician. MDM: Differential diagnosis: Medication side-effect Rationale: Tests considered and ordered secondary to shared decision making include: Previous outside records reviewed: Old ER visits. Risk of complication and/or morbidity or mortality of patient management: None Medications-Per medication reconciliation Need for hospitalization: Patient does not meet criteria for hospitalization. Need for emergency major/minor surgery: No There are no social concerns with this patient. Prescription drug management Prescriptions will include symptomatic care Patient's prior external medical records from other ER visits were reviewed by me as indicated. Prior testing and results from previous visits were reviewed. Prior tests were taken into account with medical decision making and resource utilization, independent historian/historians were used to obtain complete medical history. I independently interpreted the test that were performed, results were reviewed by me and considered findings on radiology if ordered. Medical management and examination interpretation discussions were had by me with other qualified healthcare professionals as indicated for the patient's care. ED Course Orders Procedure Category Date Status Time Vital Signs Per CPOE 10/07/24 Transmitted Routine 01:00 B-Type Natriuretic LAB 10/07/24 Complete Peptide 01:00 Chest 1vw RAD 10/07/24 Taken 01:00 12 Lead Ekg Tracing- EKG 10/07/24 Logged Technical 01:00 Oxygen By Nc/Pulse Ox CPOE 10/07/24 Transmitted 01:00 Maintain Iv CPOE 10/07/24 Transmitted 01:00 Iv Insertion CPOE 10/07/24 Transmitted 01:00 Cardiac Monitoring CPOE 10/07/24 Transmitted 01:00 Pulse Oximetry With CPOE 10/07/24 Transmitted Vs And Prn 01:00 Cbc With Differential LAB 10/07/24 Complete 01:00 Activity: Br W/Brp CPOE 10/07/24 Transmitted With Assist 01:00 Creatine Kinase, Total LAB 10/07/24 Complete 01:00 Urinalysis Profile LAB 10/07/24 Complete 01:00 Troponin Poc Order LAB 10/07/24 Complete Only 01:00 Bedside Troponin-I LAB.ER 10/07/24 In Process (Poc) 01:00 Basic Metabolic Panel LAB 10/07/24 Complete 01:00 Troponin I High LAB 10/07/24 Complete Sensitivity 01:00 Bedside Glucose CPOE 10/07/24 Transmitted Fingerstick 01:00 Drug Screen Urine LAB 10/07/24 Complete 01:06 Lactated Ringers PHA 10/07/24 In Process 1000ml (Lactated 04:00 Morphine 4mg Syg PHA 10/07/24 Complete (Morphine 4mg Syg) 05:30 Creatine Kinase, Total LAB 10/07/24 Complete 05:34 Current Medications Medications (Trade) Dose Ordered Sig/Citlali Route PRN Reason Start Time Stop Time Status Last Admin Dose Admin Lactated Ringer's 1,368 ml @ 456 mls/hr ONCE ONCE IV 10/07/24 04:00 10/07/24 06:59 10/07/24 04:29 Morphine Sulfate (morPHINE 4MG SYG) 4 mg ONCE ONCE IVP 10/07/24 05:30 10/07/24 05:31 DC 10/07/24 05:17 Vital Signs Date Time Temp Pulse Resp B/P (MAP) Pulse Ox O2 Delivery O2 Flow Rate FiO2 10/07/24 04:21 98.2 70 18 124/78 97 Room Air* 0 21 10/07/24 00:56 98.1 83 16 143/102 97 Room Air DX & DISP Disposition: Discharge Departure Impression: Primary Impression: Elevated CK Condition: Stable Additional Instructions: Please stop Ozempic until you see your primary care physician. Please drink plenty of fluids in the form of 1-2 L a day. Please check his sugar 4 times a day. Please take sliding scale insulin as needed Referrals: SELF,REFERRAL (PCP) ROBINSON FREDERICK MD Oct 07, 2024 06:30
[2024-10-07] MEDS: morPHINE 2 MG SYG IVP ONE (07:13)
[2024-10-07 07:39] VITALS: BP 136/72; PULSE 70; RESP 18; TEMP 98.2; O2SAT 97
--- NOTE | 2024-10-07 08:33 | EKG ---
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
--- NOTE | 2024-10-07 09:27 | HMCIMG ---
Exam Type: CHEST 1VW Clinical Information: CHEST PAIN Comparison: None Findings: The lungs are clear of infiltrates. The heart is normal in size. The bony and soft tissue structures of the chest are unremarkable. Impression: Clear lungs.
== END 2024-10-07 07:42 | disposition home or self-care (01) ==
LOC: EDH 00:55
DX: R74.8 Abnormal levels of other serum enzymes (principal); E11.649 Type 2 diabetes mellitus with hypoglycemia without coma; E78.00 Pure hypercholesterolemia, unspecified; F32.A Depression, unspecified; F41.9 Anxiety disorder, unspecified; I10 Essential (primary) hypertension; Z79.02 Long term (current) use of antithrombotics/antiplatelets; Z79.82 Long term (current) use of aspirin; Z79.84 Long term (current) use of oral hypoglycemic drugs; Z79.85 Long-term (current) use of injectable non-insulin antidiabetic drugs; Z79.899 Other long term (current) drug therapy; Z86.73 Personal history of transient ischemic attack (TIA), and cerebral infarction without residual deficits
CPT/HCPCS: 99285; 96374; 96361; 71045; 82550 ×2; 84484 ×3; 80048; 83880; 80305; 85025; 82948; 36415; 96376; 93005; 81003; J7120; J2270 ×2

== ENCOUNTER 2025-05-08 13:07 | Emergency (ER) | payer MEDICAID ==
[~2025-05-08] VITALS: Ht 172.7 cm; Wt 106.1 kg
--- NOTE | 2025-05-08 13:41 | ERN ---
ED Note History of Present Illness Stated Complaint: BACK PAIN Chief Complaint: Back Pain or Injury Time Seen by MD: 13:23 Dictation: PATIENT IS A 39-YEAR-OLD MALE COMING IN TODAY WITH COMPLAINTS OF DIFFUSE ABDOMINAL PAIN SWELLING WITH BLOATING NAUSEA VOMITING. HE ALSO STATES HE IS HAVING MORE FOCALIZED PAIN TO THE LEFT LOWER QUADRANT. STATES HE SEEN HIS PRIMARY CARE DOCTOR TWO DAYS AGO AND THEN ANOTHER DOCTOR TODAY WHO DID AN A1C AND SHOWED HIS A1C WAS 6.3. NO FEVER NO CHILLS. Allergies: Coded Allergies: No Known Allergies (Unverified Allergy, Unknown, 10/25/22) Home Meds Reported Medications Lidocaine (Lidocaine Pain Relief) 4 % Adh..patch, 1 EACH TP DAILY PRN for BACK PAIN, ADH.PATCH 12/24/23 Insulin Degludec (Insulin Degludec Pen (U-200)) 200 Unit/Ml (3 Ml) Insuln.pen, 50 UNIT SQ HS, SYRINGE 12/24/23 Insulin Aspart (Insulin Aspart Flexpen) 100 Unit/Ml (3 Ml) Insuln.pen, 50 UNITS SQ NOON PRN for HIGH BLOOD SUGAR 12/24/23 Losartan Potassium (Losartan Potassium) 50 Mg Tablet, 50 MG PO AM, TAB 12/24/23 Sitagliptin Phosphate (Januvia) 100 Mg Tablet, 1 TAB PO DAILY 12/24/23 Metoprolol Tartrate (Lopressor 50Mg Tab) 50 Mg Tab, 1 TAB PO BID 12/24/23 Metformin HCl (Metformin HCl) 1,000 Mg Tablet, 1 TAB PO BID 12/24/23 Cholecalciferol (Vitamin D3) (Vitamin D3) 50 Mcg Capsule, 50 MCG PO AM, CAP 05/22/23 Rosuvastatin Calcium (Rosuvastatin Calcium) 40 Mg Tablet, 40 MG PO HS, TAB 05/22/23 Cyclobenzaprine HCl (Cyclobenzaprine HCl) 10 Mg Tablet, 10 MG PO TIDP PRN for PAIN LEVEL 1 TO 5, TAB 05/22/23 Gabapentin (Gabapentin) 600 Mg Tablet, 600 MG PO TID, TAB 05/22/23 Esomeprazole Magnesium (Nexium 24Hr) 20 Mg Capsule.dr, 20 MG PO DAILY, CAP 05/22/23 Ipratropium Etta (Atrovent Hfa) 12.9 Gm Hfa.aer.ad, 17 MCG IH Q4HPRN 8/13/23 Ezetimibe (Ezetimibe) 10 Mg Tablet, 10 MG PO DAILY, TAB 10/26/22 Ferrous Sulfate (Ferosul) 325 Mg Tablet, 325 MG PO DAILY, TAB 10/26/22 Alprazolam (Alprazolam) 2 Mg Tablet, 2 MG PO BID, TAB 10/26/22 Cilostazol (Cilostazol) 50 Mg Tablet, 50 MG PO DAILY, TAB 10/26/22 Aspirin (ASPIRIN 81 MG ECTAB) 81 Mg Ectab, 81 MG PO BID, TAB.EC 10/26/22 Multivitamin with Minerals (One Daily Complete) 1 Each Tablet, 1 EACH PO DAILY, TAB 10/26/22 Fish Oil/Dha/Epa (Fish Oil 1,200 mg Fish Oil) 1 Each Capsule, 1 EACH PO BID, CAP 10/26/22 Past Medical History Past Medical History: Anxiety, CVA, Depression, Diabetes-Type II, High Cholesterol, Heart Disease, Hypertension, Liver Disease, PA, Seizure, Stroke, Other Additional Past Medical Hx: PAD, DRUG INDUCED PA Surgical History: Other Surgical History Other: RIGHT SHOULDER AND WRIST, BACK , TEETH , STENT TO RLEFT LEG Social History: Negative RN Note Reviewed/Agreed w/PFSH: Yes Review of System Dictation CONSTITUTIONAL: NEGATIVE EXCEPT FOR HPI HEAD/FACE: NEGATIVE EXCEPT FOR HPI EENT: NEGATIVE EXCEPT FOR HPI RESPIRATORY: NEGATIVE EXCEPT FOR HPI GASTROINTESTINAL/ABDOMINAL: NEGATIVE EXCEPT FOR HPI LEFT LOWER QUADRANT PAIN TENDERNESS WITH BLOATING. GENITOURINARY: NEGATIVE EXCEPT FOR HPI MUSCULOSKELETAL: NEGATIVE EXCEPT FOR HPI INTEGUMENTARY: NEGATIVE EXCEPT FOR HPI NEUROLOGICAL/PSYCH: NEGATIVE EXCEPT FOR HPI HEMATOLOGIC/LYMPHATIC: NEGATIVE EXCEPT FOR HPI ALL SYSTEMS NEGATIVE, EXCEPT NOTED ABOVE. 13 POINT REVIEW OF SYSTEMS ASSESSED AND ALL NEGATIVE EXCEPT FOR ABOVE. Initial Vital Sign VS Vital Signs Date Time Temp Pulse Resp B/P (MAP) Pulse Ox O2 Delivery O2 Flow Rate FiO2 05/08/25 13:08 97.5 88 18 125/92 97 Room Air 05/08/25 13:32 0 21 Physical Exam Dictation VITAL SIGNS REVIEWED GENERAL APPEARANCE: ALERT, ORIENTED X 3, MODERATE ACUTE DISTRESS, WELL DEVELOPED, NOURISHED. HEAD AND FACE: NON-TRAUMATIC. EYES: PERRL, PINK CONJUNCTIVAS, EYELID NO TRAUMA, ANTERIOR CHAMBER WITH ARCUS SENILIS. EARS: PINNAS INTACT AND NO SIGNS OF TRAUMA OR ERYTHEMA EAR CANALS CLEAR AND NO DISCHARGE TM NO ERYTHEMA NOSE: NO DISCHARGE, NO BLEEDING. OROPHARYNX: MOUTH NORMAL, TONGUE PINK, PHARYNX CLEAR,NO ERYTHEMA, TONSILS NO EXUDATES, NO ABSCESSES NOTED, MUCOUS MEMBRANE MOIST NECK: SUPPLE, NON-TENDER, NO THYROMEGALY, NO MASSES, NO JVD, NO BRUITS BREAST:DEFERRED CHEST:NO TENDERNESS, NO CREPITUS, NO PARADOXICAL MOVEMENT, NO RETRACTIONS LUNGS:CLEAR, WELL-VENTILATED, SYMMETRIC, NO RALES, NO WHEEZING, NO RHONCHI, NO STRIDOR, GOOD BREATH SOUNDS BILATERALLY HEART: REGULAR RATE, REGULAR RHYTHM, NO MURMUR, NO GALLOPS VASCULAR: NO PERIPHERAL EDEMA, ABDOMEN: SOFT, POSITIVE BOWEL SOUNDS, NONDISTENDED, NO GUARDING, PERIUMBILICAL AND LEFT LOWER QUADRANT PAIN TENDERNESS. NO REBOUND RECTAL: DEFERRED GENITAL: DEFERRED NEUROLOGICAL: NORMAL SPEECH, MOTOR FUNCTION INTACT, SENSORY FUNCTION INTACT MUSCULOSKELETAL: NECK NONTENDER, FULL RANGE OF MOTION, BACK NONTENDER, FULL RANGE OF MOTION, EXTREMITIES: NONTENDER, FULL RANGE OF MOTION SKIN: COLOR PINK, DRY, NO TURGOR, NO RASH, NO LACERATIONS, NO ABRASIONS, NO CONTUSIONS. LYMPHATIC: DEFERRED Results (Laboratory/Radiology) Laboratory/Radiology Laboratory Tests Test 05/08/25 14:02 05/08/25 14:13 05/08/25 15:59 Urine Color LIGHT-YELLOW (YELLOW) Urine Appearance CLEAR (CLEAR) Urine pH 6.0 (5.0-8.0) Urine Specific Leonidas 1.006 (1.001-1.031) Urine Protein NEGATIVE mg/dL (NEGATIVE) Urine Glucose (UA) NEGATIVE mg/dL (NEGATIVE) Urine Ketones 5 mg/dL (NEGATIVE) H Urine Occult Blood NEGATIVE (NEGATIVE) Urine Nitrate NEGATIVE (NEGATIVE) Urine Bilirubin NEGATIVE mg/dL (NEGATIVE) Urine Urobilinogen 0.2 mg/dL (0.2-1.0) Urine Leukocyte Esterase NEGATIVE Kuldeep/uL White Blood Count 6.5 K/uL (4.8-10.8) Red Blood Count 4.73 MIL/uL (4.50-6.20) Hemoglobin 14.1 g/dL (14.0-18.0) Hematocrit 41.6 % (42-54) L Mean Corpuscular Volume 87.9 fL (79-99) Mean Corpuscular Hemoglobin 29.8 pg (27.0-33.0) Mean Corpuscular Hemoglobin Concent 33.9 g/dL (32.0-36.0) Red Cell Distribution Width 13.0 % (11.0-15.5) Platelet Count 145 K/uL (130-400) Mean Platelet Volume 8.6 fL (7.5-10.5) Immature Granulocyte % (Auto) 0.2 % (0-1) Neutrophils (%) (Auto) 66.9 % (40.0-77.0) Lymphocytes (%) (Auto) 19.1 % (21.0-51.0) L Monocytes (%) (Auto) 12.1 % (3.0-13.0) Eosinophils (%) (Auto) 1.1 % (0.0-8.0) Basophils (%) (Auto) 0.6 % (0.0-5.0) Neutrophils # (Auto) 4.4 K/uL (1.8-7.7) Lymphocytes # (Auto) 1.3 K/uL (1.0-4.8) Monocytes # (Auto) 0.8 K/uL (0.1-1.0) Eosinophils # (Auto) 0.07 K/uL (0.00-0.70) Basophils # (Auto) 0.04 K/uL (0.00-0.20) Absolute Immature Granulocyte (auto 0.01 K/uL (0-1) Nucleated Red Blood Cells 0.0 % (0.0-0.19) Sodium Level 138 mmol/L (136-145) Potassium Level 3.8 mmol/L (3.5-5.1) Chloride Level 101 mmol/L (101-111) Carbon Dioxide Level 26 mmol/L (21-32) Blood Urea Nitrogen 9 mg/dL (7-18) Creatinine 0.9 mg/dL (0.5-1.3) Glomerular Filtration Rate Calc 111 mL/min (>90) Random Glucose 84 mg/dL (70-105) Total Calcium 8.8 mg/dL (8.5-10.1) Troponin I High Sensitivity 15 ng/L (4-75) 17 ng/L (4-75) PATIENT: RICHY ASCENCIO MR#: [id number] : 1985 SEX: M AGE: 39 LOCATION: [facility] ORDER 38 STATUS: [facility] REPORT#: [id number] SERVICE REASON: LEFT LUMBAR PAIN WITH BLOATING/CRAMPING ORDERING PHYSICIAN: LEONEL LABOY NP PROCEDURE: ABD PEL W - CT ABDOMEN/PELVIS W/CONTRAST EXAM: CT Abdomen and Pelvis with IV contrast CLINICAL HISTORY: LEFT LUMBAR PAIN WITH BLOATING/CRAMPING TECHNIQUE: Axial computed tomography images of the abdomen and pelvis with intravenous contrast. CONTRAST: with intravenous contrast. COMPARISON: Study dated on 06/21/24 FINDINGS: LUNG BASES: The lung bases appear clear. No pleural effusions are seen. LIVER: The liver is enlarged in size. The right hepatic lobe measures up to 22 cm. A 10 x 8.5 mm hepatic cyst in segment ROBERTO of the liver. GALLBLADDER AND BILE DUCTS: The gallbladder appears within normal limits. No radiopaque gallstones are seen. No biliary ductal dilatation is evident. PANCREAS: Unremarkable. SPLEEN: Unremarkable. ADRENAL GLANDS: Unremarkable. KIDNEYS, URETERS, AND BLADDER: The kidneys appear within normal limits. There is no hydronephrosis or hydroureter. No urinary calculi are seen. 14 x 14 mm simple cortical cyst in upper pole of the left kidney. STOMACH AND BOWEL: Unremarkable appearance of the stomach and bowel. No evidence of bowel obstruction. No evidence suggesting enteritis or colitis. APPENDIX: No evidence of acute appendicitis on CT examination. PERITONEUM: No free fluid. No free air. LYMPH NODES: There are homogeneously enhancing multiple subcentimeter mesenteric lymph nodes with mild surrounding mesenteric fat stranding, likely mesenteric adenitis. There is a single prominent periportal lymph node that measures 1.7 x 3.1 cm. REPRODUCTIVE: The uterus is not visualized; likely postoperative advice and clinical correlation. VASCULATURE: No evidence of abdominal aortic aneurysm. BONES: No aggressive appearing osseous lesion. No acute osseous pathology evident. Central wedge compression of the L3 and L4 vertebral bodies with a 10%-20% reduction in height. Pedicle screws in the L5 and S1 vertebrae on the left side. IMPRESSION: 1. No acute intraabdominal or pelvic pathology. 2. Hepatomegaly with right hepatic lobe measuring 22 cm. 3. Mesenteric adenitis with surrounding fat stranding. 4. Acute to subacute L3 and L4 vertebral body compression fractures with 10-20% height loss. 5. Prior L5-S1 left pedicle screw fixation. /[place] [facility] Reviewed?: Yes EKG Comment: EKG SINUS RHYTHM/HEART RATE 91/AXIS NORMAL/EARLY REPOLARIZATION SEEN IN LEADS V4 THROUGH SIX. 1700/2ND EKG SINUS RHYTHM/HEART RATE 88/AXIS NORMAL/NONSPECIFIC ST CHANGES NO CHANGE FROM THE INITIAL ONE. SECOND HIGH SENSITIVITY TROPONIN 17 HEART SCORE THREE ED Course ED Course Orders Procedure Category Date Status Time Cbc With Differential LAB 05/08/25 Complete 13:38 Urinalysis Profile LAB 05/08/25 Complete 13:38 Ct Abdomen/Pelvis CT 05/08/25 Resulted W/Contrast 13:38 0.9%Nacl 1000ml (Ns PHA 05/08/25 Complete 1000ml) 14:00 Morphine 2mg Syg PHA 05/08/25 Complete (Morphine 2mg Syg) 14:00 Ondansetron 4mg Inj PHA 05/08/25 Complete (Zofran 4mg Inj) 14:00 Basic Metabolic Panel LAB 05/08/25 Complete 13:38 Troponin I High LAB 05/08/25 Complete Sensitivity 14:10 12 Lead Ekg Tracing- EKG 05/08/25 Complete Technical 14:10 Aspirin 325mg Tab PHA 05/08/25 Complete (Aspirin 325mg Tab) 14:30 Nitroglycerin 0.4mg PHA 05/08/25 Complete Sl Tab (Nitrostat) 14:30 Iohexol (Omnipaque) PHA 05/08/25 Complete 15:08 12 Lead Ekg Tracing- EKG 05/08/25 Complete Technical 15:38 Troponin I High LAB 05/08/25 Complete Sensitivity 15:38 Ketorolac PHA 05/08/25 Complete Tromethamine 30mg/Ml 17:00 Current Medications Medications (Trade) Dose Ordered Sig/Citlali Route PRN Reason Start Time Stop Time Status Last Admin Dose Admin Aspirin (Aspirin 325mg Tab) 325 mg ONCE ONCE PO 05/08/25 14:30 05/08/25 14:31 DC 05/08/25 14:45 Iohexol (Omnipaque) 75 ml STK-MED ONCE IV 05/08/25 15:08 05/08/25 15:09 DC Ketorolac Tromethamine (toRADol) 30 mg ONCE ONCE IVP 05/08/25 17:00 05/08/25 17:04 DC Morphine Sulfate (morPHINE 2MG SYG) 2 mg ONCE ONCE IVP 05/08/25 14:00 05/08/25 14:01 DC 05/08/25 14:25 Nitroglycerin (Nitrostat) 0.4 mg AD PRN SL CHEST PAIN 05/08/25 14:30 05/08/25 17:28 DC Ondansetron HCl (zoFRAN 4MG INJ) 4 mg ONCE ONCE IVP 05/08/25 14:00 05/08/25 14:01 DC 05/08/25 14:25 Sodium Chloride 1,000 ml @ 0 mls/hr ONCE ONCE IV 05/08/25 14:00 05/08/25 14:01 DC 05/08/25 14:25 Vital Signs Date Time Temp Pulse Resp B/P (MAP) Pulse Ox O2 Delivery O2 Flow Rate FiO2 05/08/25 17:09 97.5 82 18 128/88 97 Room Air* 0 21 05/08/25 13:32 97.5 88 18 125/92 97 Room Air* 0 21 05/08/25 13:08 97.5 88 18 125/92 97 Room Air 1413/PATIENT WAS HAVING BLOOD DRAWN FOR HIS ABDOMINAL PAIN WHEN HE COMPLAINED OF HAVING SUBSTERNAL ON LEFT ANTERIOR CHEST PAIN THAT DOES NOT RADIATE. ON FURTHER QUERY HE SAYS THAT HE HAS BEEN HAVING CHEST PAIN OFF AND ON SINCE THE WEEKEND. STATES WHEN HE SAW HIS PRIMARY CARE DOCTOR HE DID NOT THINK ABOUT IT THAT IT COULD BE HIS HEART. PATIENT HAS ALREADY HAD A PRIOR STROKE AND A HEART CATHETERIZATION BY DR. CHEN SECONDARY TO AN PA AT [facility] WHERE IT WAS TREATED. CURRENTLY STATES THE PAIN IS COMING AND GOING. 1540/initial EKG and cardiac enzymes unremarkable. We will repeat EKG and cardiac enzymes and pending results of CT to rule out diverticulitis versus hernia.1643/ 1643/SPOKE WITH LASHA AT [facility]. SHE WOULD CHECK TO HAVE THE CT READING EXPEDITED FOR ME. IT WAS STILL NOT AVAILABLE.1704/ 170/PATIENT REFUSED P.R.N. TORADOL SAYS IT DOES NOT WORK FOR ME. STATES HE GOT IT AT [facility] ON TUESDAY AND HE DOES NOT LIKE IT. PATIENT PATIENT HAS BACLOFEN/TYLENOL NO. 3/GABAPENTIN FROM , HE WAS ADVISED TO CONTINUE THAT AT HOME AND SEE HIS PRIMARY CARE DOCTOR. HEART Score Response (Comments) Value EKG: Repolarization changes 1 Risk Factors: 3+ risk factors (+2) 2 Initial Troponin: Normal limit (0) 0 Total 3 Medical Decision Making MDM MDM: DIFFERENTIAL DIAGNOSIS: APPENDICITIS/DIVERTICULITIS/HERNIA/URINARY TRACT INFECTION/PYELONEPHRITIS/ELECTROLYTE IMBALANCE/DEHYDRATION/ACS/AMI RATIONALE: TESTS CONSIDERED AND ORDERED SECONDARY TO SHARED DECISION MAKING INCLUDE: EKG/LABS/RADIOLOGY PREVIOUS OUTSIDE RECORDS REVIEWED: OLD ER VISITS. RISK OF COMPLICATION AND/OR MORBIDITY OR MORTALITY OF PATIENT MANAGEMENT: NONE MEDICATIONS-PER MEDICATION RECONCILIATION NEED FOR HOSPITALIZATION: PATIENT DOES NOT MEET CRITERIA FOR HOSPITALIZATION. NONE NEED FOR EMERGENCY MAJOR/MINOR SURGERY: NO THERE ARE NO SOCIAL CONCERNS WITH THIS PATIENT. PRESCRIPTION DRUG MANAGEMENT IBUPROFEN PRESCRIPTIONS WILL INCLUDE SYMPTOMATIC CARE PATIENT'S PRIOR EXTERNAL MEDICAL RECORDS FROM OTHER ER VISITS WERE REVIEWED BY ME INDICATED. PRIOR TESTING AND RESULTS FROM PREVIOUS VISITS WERE REVIEWED. PRIOR TESTS WERE TAKEN INTO ACCOUNT WITH MEDICAL DECISION MAKING AND RESOURCE UTILIZATION, INDEPENDENT HISTORIAN/HISTORIANS WERE USED TO OBTAIN COMPLETE MEDICAL HISTORY. I INDEPENDENTLY INTERPRETED THE TEST THAT WERE PERFORMED, RESULTS WERE REVIEWED BY ME AND CONSIDERED FINDINGS ON RADIOLOGY IF ORDERED. MEDICAL MANAGEMENT AND EXAMINATION INTERPRETATION DISCUSSIONS WERE HAD BY ME WITH OTHER QUALIFIED HEALTHCARE PROFESSIONALS INDICATED FOR THE PATIENT'S CARE. DX & DISP Disposition: Discharge Departure Impression: Primary Impression: Atypical chest pain Additional Impressions: Mesenteric adenitis, Chronic lower back pain Condition: Stable Additional Instructions: FOLLOW-UP WITH PRIMARY CARE PROVIDER IN 1 TO 2 DAYS. TAKE MEDICATIONS DIRECTED HERE IN THE EMERGENCY ROOM. OKAY TO CONTINUE HOME MEDICATIONS UNLESS OTHERWISE DISCUSSED DURING YOUR VISIT IN THE EMERGENCY ROOM TODAY. RETURN TO YOUR NEAREST EMERGENCY ROOM IF SYMPTOMS WORSEN OR IF THERE IS NO IMPROVEMENT. CALL 911 IF YOU NEED IMMEDIATE ASSISTANCE. TAKE TYLENOL OR MOTRIN [id number] NEEDED AND IF NO CONTRAINDICATIONS ARE PRESENT. INCREASE ORAL HYDRATION. A WOUND CULTURE OR URINE CULTURE WAS ORDERED HERE IN THE EMERGENCY ROOM DEPARTMENT PLEASE FOLLOW-UP WITH PRIMARY CARE PROVIDER AND ADVISE THEM TO GET REPEAT PORTS FROM OUR FACILITY. IF YOU HAD ANY CRISTÓBAL WRAP/SPLINTS THAT WERE APPLIED HERE, PLEASE DO NOT REMOVE THEM UNTIL YOU SEE YOUR PRIMARY CARE OR SPECIALTY. CONTINUE BACLOFEN/GABAPENTIN/TYLENOL NO. 3 FROM YOUR PRIMARY CARE DOCTOR. MAY INCREASE TYLENOL NO. 3 TO TWO TABLETS EVERY 6 HOURS FOR SEVERE PAIN. FOLLOW UP WITH YOUR PRIMARY CARE DOCTOR Referrals: SELF,REFERRAL (PCP) Time of Disposition: 17:06 I have reviewed the case, and I agree with, Diagnosis and Plan LEONEL LABOY NP May 08, 2025 13:41 SADIE CANALES DO May 09, 2025 07:09
[2025-05-08 14:12] LABS: APPEARANCE,URINE CLEAR (CLEAR); GLUCOSE, URINE (UA) NEGATIVE (NEGATIVE); LEUKOCYTE ESTERASE ,URINE NEGATIVE Leu/uL (NEGATIVE); NITRATE,URINE NEGATIVE (NEGATIVE); OCCULT BLOOD,URINE NEGATIVE (NEGATIVE)
[2025-05-08 14:17] LABS: IMMATURE GRANULOCYTE ABSOLUTE 0.01 K/uL (0-1); NUCLEATED RED BLOOD CELLS 0.0 % (0.0-0.19); PLATELET COUNT (AUTO) 145 K/uL (130-400); RED BLOOD CELL COUNT(AUTO) 4.73 MIL/uL (4.50-6.20); RED CELL DISTRIBUTION WIDTH 13.0 % (11.0-15.5); WHITE BLOOD COUNT (AUTO) 6.5 K/uL (4.8-10.8)
--- NOTE | 2025-05-08 14:19 | EKG ---
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
[2025-05-08] MEDS: 0.9%NACL 1000ML 1,000 ML IV ONE (14:25)
[2025-05-08 14:27] LABS: CREATININE 0.9 mg/dL (0.5-1.3); GLOMERULAR FILTR. RATE CALC 111.0 mL/min (>90); GLUCOSE,RANDOM 84.0 mg/dL (70-105); SODIUM SERUM 138.0 mmol/L (136-145); UREA NITROGEN, BLOOD 9.0 mg/dL (7-18)
[2025-05-08 14:29] LABS: ADD UA MICROSCOPIC NO
[2025-05-08] MEDS ORDERED: NITROGLYCERIN 0.4 MG SL TAB SL PRN (14:30)
[2025-05-08] MEDS: ASPIRIN 325MG TAB PO ONE (14:45)
[2025-05-08] MEDS ORDERED: IOHEXOL-350 75 ML VIAL IV ONE (15:08)
--- NOTE | 2025-05-08 16:55 | HMCIMG ---
EXAM: CT Abdomen and Pelvis with IV contrast CLINICAL HISTORY: LEFT LUMBAR PAIN WITH BLOATING/CRAMPING TECHNIQUE: Axial computed tomography images of the abdomen and pelvis with intravenous contrast. CONTRAST: with intravenous contrast. COMPARISON: Study dated on 06/21/24 FINDINGS: LUNG BASES: The lung bases appear clear. No pleural effusions are seen. LIVER: The liver is enlarged in size. The right hepatic lobe measures up to 22 cm. A 10 x 8.5 mm hepatic cyst in segment ROBERTO of the liver. GALLBLADDER AND BILE DUCTS: The gallbladder appears within normal limits. No radiopaque gallstones are seen. No biliary ductal dilatation is evident. PANCREAS: Unremarkable. SPLEEN: Unremarkable. ADRENAL GLANDS: Unremarkable. KIDNEYS, URETERS, AND BLADDER: The kidneys appear within normal limits. There is no hydronephrosis or hydroureter. No urinary calculi are seen. 14 x 14 mm simple cortical cyst in upper pole of the left kidney. STOMACH AND BOWEL: Unremarkable appearance of the stomach and bowel. No evidence of bowel obstruction. No evidence suggesting enteritis or colitis. APPENDIX: No evidence of acute appendicitis on CT examination. PERITONEUM: No free fluid. No free air. LYMPH NODES: There are homogeneously enhancing multiple subcentimeter mesenteric lymph nodes with mild surrounding mesenteric fat stranding, likely mesenteric adenitis. There is a single prominent periportal lymph node that measures 1.7 x 3.1 cm. REPRODUCTIVE: The uterus is not visualized; likely postoperative advice and clinical correlation. VASCULATURE: No evidence of abdominal aortic aneurysm. BONES: No aggressive appearing osseous lesion. No acute osseous pathology evident. Central wedge compression of the L3 and L4 vertebral bodies with a 10%-20% reduction in height. Pedicle screws in the L5 and S1 vertebrae on the left side. IMPRESSION: 1. No acute intraabdominal or pelvic pathology. 2. Hepatomegaly with right hepatic lobe measuring 22 cm. 3. Mesenteric adenitis with surrounding fat stranding. 4. Acute to subacute L3 and L4 vertebral body compression fractures with 10-20% height loss. 5. Prior L5-S1 left pedicle screw fixation. /[place]
[2025-05-08 17:09] VITALS: BP 128/88; PULSE 82; RESP 18; TEMP 97.5; O2SAT 97
--- NOTE | 2025-05-09 06:47 | EKG ---
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
== END 2025-05-08 17:28 | disposition home or self-care (01) ==
LOC: EDH 13:07
DX: R07.89 Other chest pain (principal); G89.29 Other chronic pain; M54.50 Low back pain, unspecified; I88.0 Nonspecific mesenteric lymphadenitis; E11.9 Type 2 diabetes mellitus without complications; E78.00 Pure hypercholesterolemia, unspecified; F32.A Depression, unspecified; F41.9 Anxiety disorder, unspecified; I10 Essential (primary) hypertension; Z79.02 Long term (current) use of antithrombotics/antiplatelets; Z79.82 Long term (current) use of aspirin; Z79.84 Long term (current) use of oral hypoglycemic drugs; Z79.899 Other long term (current) drug therapy; Z86.73 Personal history of transient ischemic attack (TIA), and cerebral infarction without residual deficits
CPT/HCPCS: 99285; 74177; 96374; 96375; 84484 ×2; 80048; 85025; 81003; 36415; 93005 ×2; J2270; J7030; J2405; Q9967